=== PATIENT | male | born 1995 | race Caucasian/White ===

== ENCOUNTER 2022-04-22 20:22 | Emergency (ER) | payer SELFPAY ==
[2022-04-22 20:22] VITALS: BP 130/74; PULSE 67; RESP 16; RESP 99; TEMP 37.1; O2SAT 98
[2022-04-22 20:23] VITALS: BP 119/91; PULSE 115; RESP 16; TEMP 36.6; O2SAT 97; BMI 24.3
--- NOTE | 2022-04-22 20:26 | RAD_ITS ---
STUDY: X-RAY CHEST REASON FOR EXAM: Male, 26 years old. CHEST PAIN COUGH, SOB TECHNIQUE: XR Chest 1 View COMPARISON: None FINDINGS: There is no demonstrated pleural abnormality. Normal size heart. Normal mediastinum and renan. Normal visualized pulmonary arteries. Normal visualized aortic arch and descending thoracic aorta. Normal visualized thoracic spine. Normal visualized ribs, clavicles, and shoulders. There is no demonstrated abnormality of the visualized soft tissue structures of the upper abdomen. RAD/Chest 1 View (Portable) IMPRESSION: There are no acute findings. Electronically Signed: Bj Rivers MD at 21:00 EST ,
[2022-04-22 21:30] LABS: Absolute Lymphocyte Count 3.81 X10^3/uL (0.83-4.51); Absolute Neutrophil Count 6.2 X10^3/uL (2.0-7.7); Basophil# 0.05 X10^3/uL; Basophil% 0.4 % (0-1); Eosinophil# 0.14 X10^3/uL; Eosinophils% 1.2 % (0-5); Hematocrit 45.2 % (40-54); Hemoglobin 15.5 g/dL (13.0-16.5); Lymphocyte # 3.81 X10^3/ul (0.83-4.51); Lymphocyte % 33.3 % (19-41); Mean Corp Hgb Conc 34.3 g/dL (32-36); Mean Corpuscular Hgb 31.4 pg (27.0-32.0); Mean Corpuscular Volume 91.5 fL (80-94); Mean Platelet Vol. 9.9 fl (6.2-12.0); Monocyte# 1.21 X10^3/uL; Monocyte% 10.6 % (0-10); NRBC Flagged by Analyzer 0 % (0-5); Neutrophil # 6.15 X10^3/uL (2.7-7.7); Neutrophil % 53.9 % (47-70); Platelet Count 316 K/mm3 (150-450); Red Blood Count 4.94 M/mm3 (4.6-6.2); White Blood Count 11.4 K/mm3 (4.4-11.0)
[2022-04-22 21:54] LABS: Anion Gap 7 (5-15); BUN 19 mg/dL (7-18); BUN/Creat Ratio 17.9 RATIO (10-20); Calcium,Total 9.8 mg/dL (8.5-10.1); Chloride 101 mmol/L (98-107); Creatinine, Serum 1.06 mg/dL (0.70-1.30); EST Glomerular Filtration Rate 89 mL/min (>60); Est Glom Filt Rate - Afr Amer 108 mL/min (>60); Estimated Creatinine Clearance 105.61 ml/min; Glucose 117 mg/dL (74-106); Potassium 4.1 mmol/L (3.5-5.1); Sodium Level 134 mmol/L (136-145)
[2022-04-22 22:27] LABS: D-Dimer Quantitative (DVT/PE) 0.34 FEU/ug/m (0.27-0.49)
--- NOTE | 2022-04-22 22:41 | EDS_ITS ---
HPI History of Present Illness Chief Complaint: Shortness of Breath Informant: patient Onset/Context/Timing Onset: Weeks (4 weeks) Narrative Narrative: Patient presents with a 4-week history of cough and shortness of breath. 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 He denies fever or chills. He does report loss of smell and taste. He has not seen anyone else for this current illness. When asked what brought him to the emergency room tonight he states I am just tired of it. PFSH PFSH Medical History no medical history no medical history Home Medications prednisone 20 mg tablet 40 mg PO DAILY #10 tabs 04/22/22 [Rx Last Taken Unknown] Allergy/AdvReac Type Severity Reaction Status Date / Time No Known Allergies Allergy Verified 04/22/22 20:25 ROS ROS ED Constitutional Constitutional ED: Denies chills or fever(s) Eyes Eyes: Denies change in vision or discharge from eye(s) ENT ENT ED: Denies discharge from eye(s), rhinorrhea or sore throat Cardiovascular Cardiovascular: Denies chest pain or palpitations Respiratory/Chest Respiratory/Chest: Reports cough, dyspnea and other Details: Occasional blood- streaked sputum Gastrointestinal Gastrointestinal: Denies abdominal pain, diarrhea, nausea or vomiting Genitourinary Genitourinary ED: Denies difficulty urinating or dysuria Musculoskeletal Musculoskeletal: Reports myalgias; Denies back pain or extremity pain Integumentary Denies Abrasions or rash Neurologic Neurologic: Denies headache(s) or weakness Psychiatric Psychiatric: Denies anxiety or depression Allergic/Immunologic Allergic/Immunologic ED: Denies lip swelling or urticaria EXAM Physical Exam Const Vital Signs: 04/22/22 20:23 Temperature 98 F Temperature Source Temporal Pulse Rate 115 H Respiratory Rate 16 Blood Pressure 119/91 H Blood Pressure Mean 100 Pulse Ox 97 Oxygen Delivery Method Room Air Positive well nourished and well developed General Appearance ED: well developed HEENT Reports normocephalic and head/scalp atraumatic Eyes PERRL and EOMs intact bilaterally Neck supple Chest Wall inspection of chest normal and palpation of chest normal Resp normal respiratory effort and clear to auscultation bilaterally Cardio regular rate and regular rhythm GI non-tender Palpation: soft Back/Spine no CVA tenderness Extremity normal to inspection Neuro oriented x3 and no sensory deficits noted Sensorium / Orientation: alert Motor Exam: strength 5/5 throughout Psych mental status grossly normal Skin no rashes or lesions noted MDM MDM MDM Narrative Medical decision making narrative: Lab work and chest x-ray initiated by nursing protocol. Swab for COVID and influenza obtained. D-dimer is added at the time of my evaluation. Lab Data Attestation: I reviewed the patient's lab results. Labs: Laboratory Results - last 24 hr 04/22/22 04/22/22 04/22/22 21:20 21:20 22:10 WBC 11.4 H RBC 4.94 Hgb 15.5 Hct 45.2 MCV 91.5 MCH 31.4 MCHC 34.3 RDW Std Deviation 40.0 RDW Coeff of Craig 12.0 Plt Count 316 MPV 9.9 Immature Gran % (Auto) 0.600 Neut % (Auto) 53.9 Lymph % (Auto) 33.3 Mccracken % (Auto) 10.6 H Eos % (Auto) 1.2 Baso % (Auto) 0.4 Absolute Neuts (auto) 6.2 Absolute Lymphs (auto) 3.81 Nucleated RBC % 0 D-Dimer Quant (PE/DVT) 0.34 Sodium 134 L Potassium 4.1 Chloride 101 Carbon Dioxide 26.0 Anion Gap 7 BUN 19 H Creatinine 1.06 Estim Creat Clear Calc 105.61 Est GFR (MDRD) Af Amer 108 Est GFR (MDRD) Non-Af 89 BUN/Creatinine Ratio 17.9 Glucose 117 H Calcium 9.8 Radiography Chest X-Ray - ED: 1 View, Normal, Heart, Lungs and Mediastinum Diagnostic Testing: Clinical Impression(s) from Imaging Studies Chest X-Ray 04/22/22 20:26 IMPRESSION: There are no acute findings. Electronically Signed: Bj Rivers MD at 21:00 EST , Treatment and Re-Evaluation Narrative: CBC was a white count 11.4 but no left shift. Chemistry studies largely unremarkable. D-dimer is normal at 0.34. COVID and influenza tests are negative. Chest x-ray per my interpretation reveals no focal infiltrate, no acute findings. Radiology interpretation is reviewed and agrees. 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 Although I do not hear wheezing at this time patient states he will occasionally have wheezing. I will treat him with a short steroid burst for lung inflammation. Discharge Plan Triage Chief Complaint: Shortness of Breath ED Provider: Leona Bee Dx/Rx/DC Orders Clinical Impression: Pneumonitis Instructions: ED Dyspnea Prescriptions: New prednisone 20 mg tablet 40 mg PO DAILY Qty: 10 0RF Primary Care Provider: Care Physician,No Primary Referrals: Garima Beaver MD [Med Staff - [employer]] - As Needed Care Physician,No Primary [Primary Care Provider] - Disposition Disposition: Home, Self Care
[2022-04-22] MEDS: predniSONE 20 MG Tablet 40 MG PO (23:43)
== END 2022-04-23 00:05 | disposition home or self-care (01) ==
PROVIDERS: Emergency Provider Emergency Medicine; Visit Provider Emergency Medicine
DX: J18.9 Pneumonia, unspecified organism (principal); R06.02 Shortness of breath; Z79.52 Long term (current) use of systemic steroids; Z20.822 Contact with and (suspected) exposure to COVID-19
CPT/HCPCS: 71045; 80048; 85025; 85379; 87428; 94760; 99281; A4216